=== PATIENT | female | born 2000 | race African-American/Black ===

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

== ENCOUNTER 2018-06-20 09:54 | Emergency (ER) | payer MEDICAID ==
[2018-06-20 10:36] LABS: Bilirubin Negative (Negative); Blood, Urine Negative (Negative); Clarity CLEAR (Clear); Glucose, Urine (Dipstick) Negative (Negative); Leukocyte Small (Negative); Nitrite Negative (Negative); Protein, Urine (Dipstick) Negative (Neg-Trace); Specific Gravity, Urine 1.016 (1.002-1.036)
[2018-06-20 10:39] LABS: Bacteria/HPF Rare-Few HPF (None Seen); Hyaline Casts/LPF 0-3 HYALINE CAST LPF (0-3 Hyaline); Pathc Cast-AUWi Flag 0.13 (0-2.49); RBC/HPF 0-3 HPF (0-3)
[2018-06-20 10:41] LABS: Pregnancy Test - Urine (BHCG) Negative (Negative); Pregu Control Background? CLEAR/WHITE (CLR/WHITE); Pregu Control Bar Appear? YES (CONTROL BAR); Specific Gravity 1.016 (1.002-1.036)
== END 2018-06-20 12:45 | disposition home or self-care (01) ==
LOC: ERS 09:54
DX: K64.9 Unspecified hemorrhoids (principal); R30.0 Dysuria
CPT/HCPCS: 81003; 81015; 81025; 99283

== ENCOUNTER 2018-06-25 21:16 | Emergency (ER) | payer MEDICAID, SELFPAY ==
--- NOTE | 2018-06-25 22:09 | RAD ---
Radiograph chest 2 views: HISTORY: 18-year-old female with chest congestion FINDINGS: Lungs are clear. Cardiomediastinal silhouette is normal. No pleural effusion or pneumothorax. IMPRESSION: Negative
[2018-06-25] MEDS ORDERED: Ibuprofen 800 MG TAB ONE (22:22)
[2018-06-25] MEDS ORDERED: Acetaminophen 500 MG TAB ONE (22:22)
== END 2018-06-25 22:25 | disposition home or self-care (01) ==
LOC: ERS 21:16
DX: J02.9 Acute pharyngitis, unspecified (principal); J20.9 Acute bronchitis, unspecified
CPT/HCPCS: 71046; 87081; 87430

== ENCOUNTER 2019-11-16 15:27 | Emergency (ER) | payer MEDICAID ==
[2019-11-17 12:24] LABS: SARS-CoV-2 MS2 Positive; SARS-CoV-2 N Gene Negative; SARS-CoV-2 S Gene Negative; SARS-CoV-2 by NAA Not Detected (NotDetected); SARS-CoV-2 orf1ab Negative
== END 2019-11-16 16:20 | disposition home or self-care (01) ==
LOC: ERS 15:27
DX: Z20.828 Contact with and (suspected) exposure to other viral communicable diseases (principal)
CPT/HCPCS: 87635; 99283; U0003

== ENCOUNTER 2020-03-16 12:29 | Emergency (ER) | payer MEDICAID, SELFPAY ==
[2020-03-16 12:55] LABS: Bacteria/HPF None Seen HPF (None Seen); Bilirubin Negative (Negative); Blood, Urine Negative (Negative); Clarity Clear (Clear); Glucose, Urine (Dipstick) Normal (Negative); Ketone, Urine Negative (Negative); Leukocyte 75 Leu/uL (Negative); Nitrite Negative (Negative); Protein, Urine (Dipstick) Negative (Neg-Trace); RBC/HPF 0-3 HPF (0-3); Specific Gravity, Urine 1.024 (1.002-1.036); Squamous Epithelial 0-3 HPF (0-3); Urobilinogen Normal mg/dL (Less than 2); pH, Urine 7.5 (5.0-9.0)
[2020-03-16 13:23] LABS: Pregnancy Test - Urine (BHCG) Negative (Negative); Pregu Control Background? CLEAR/WHITE (CLR/WHITE); Pregu Control Bar Appear? YES (CONTROL BAR); Specific Gravity 1.024 (1.002-1.036)
[2020-03-16] MEDS ORDERED: cefTRIAXone\\ROCEPHIN 500 MG VIAL ONE (14:23)
[2020-03-16] MEDS ORDERED: Lidocaine 1% PF 5 ML VIAL ONE (14:25)
[2020-03-17 21:19] LABS: Chlamydia by PCR Not Detected (NotDetected); GC by PCR Not Detected (NotDetected)
== END 2020-03-16 14:56 | disposition home or self-care (01) ==
LOC: ERS 12:29
DX: N89.8 Other specified noninflammatory disorders of vagina (principal)
CPT/HCPCS: 81003; 81015; 81025; 87480; 87491; 87510; 87591; 87660; 96372; 99283; J0696

== ENCOUNTER 2020-03-31 08:08 | Emergency (ER) | payer OTHER, SELFPAY ==
--- NOTE | 2020-03-31 09:37 | RAD ---
CHEST 2 VIEWS: HISTORY: Chest and shoulder pain. COMPARISON: None. FINDINGS: Lungs are clear. No pneumothorax or effusion. Cardiac silhouette and mediastinal contours are withi n normal limits. No acute osseous abnormality. IMPRESSION: No acute intrathoracic abnormality. POS: OFF
[2020-03-31] MEDS ORDERED: Ibuprofen 200 MG TAB ONE (09:46)
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
== END 2020-03-31 10:25 | disposition home or self-care (01) ==
LOC: ERS 08:08
DX: S40.011A Contusion of right shoulder, initial encounter (principal); V89.2XXA Person injured in unspecified motor-vehicle accident, traffic, initial encounter
CPT/HCPCS: 71046

== ENCOUNTER 2020-06-07 10:13 | Emergency (ER) | payer SELFPAY ==
[2020-06-07] MEDS ORDERED: Naproxen 500 MG TAB ONE (11:45)
== END 2020-06-07 11:51 | disposition home or self-care (01) ==
LOC: ERS 10:13
DX: G89.18 Other acute postprocedural pain (principal); K08.89 Other specified disorders of teeth and supporting structures; Z79.891 Long term (current) use of opiate analgesic
CPT/HCPCS: 99283

== ENCOUNTER 2020-11-25 10:49 | Emergency (ER) | payer SELFPAY ==
[2020-11-25] MEDS ORDERED: Ondansetron ODT 4 MG TAB ONE (11:34)
[2020-11-25 11:36] LABS: #Basophils 0.1 thou/uL (0.0-0.2); #Eosinphils 0.1 thou/uL (0.0-0.7); #Lymphocytes 1.4 thou/uL (1.20-3.40); #Monocytes 1.1 thou/uL (0.11-0.59); #Neutrophils 7.7 thou/uL (1.40-6.50); %Basophils 0.8 % (0.0-1.0); %Eosinophils 1.1 % (0.0-10.0); %Monocytes 10.8 % (0.0-10.0); %Neutrophils 74.3 % (42.0-75.0); Hemoglobin 12.3 g/dL (12.0-16.0); Mean Corpuscular HGB CONC 32.4 g/dL (32.0-36.0); Mean Corpuscular Hemoglobin 29.5 pg (27.0-31.0); Mean Platelet Volume 7.1 fL (7.4-10.4); Platelet Count 293 thou/uL (130-400); RBC Distribution Width 12.6 % (11.5-14.5); Red Blood Cell (RBC) Count 4.16 mill/uL (4.20-5.40); White Blood Cell (WBC) Count 10.4 thou/uL (4.8-10.8)
[2020-11-25 11:42] LABS: Bilirubin Negative (Negative); Blood, Urine Trace (Negative); Clarity Turbid (Clear); Glucose, Urine (Dipstick) Normal (Negative); Ketone, Urine Negative (Negative); Leukocyte 250 Leu/uL (Negative); Nitrite Negative (Negative); Protein, Urine (Dipstick) 30 mg/dL (Neg-Trace); Specific Gravity, Urine 1.012 (1.002-1.036); Urobilinogen Normal mg/dL (Less than 2); pH, Urine 5.5 (5.0-9.0)
[2020-11-25 11:46] LABS: Bacteria/HPF 1+ HPF (None Seen)
[2020-11-25 11:52] LABS: Pregnancy Test - Urine (BHCG) Negative (Negative); Pregu Control Background? CLEAR/WHITE (CLR/WHITE); Pregu Control Bar Appear? YES (CONTROL BAR); Specific Gravity 1.012 (1.002-1.036)
== END 2020-11-25 13:03 | disposition home or self-care (01) ==
LOC: ERS 10:49
DX: J02.9 Acute pharyngitis, unspecified (principal); R11.2 Nausea with vomiting, unspecified; M79.10 Myalgia, unspecified site
CPT/HCPCS: 36415; 81003; 81015; 81025; 85025; 99284; Q0162

== ENCOUNTER 2021-02-12 08:04 | Emergency (ER) | payer SELFPAY ==
[2021-02-12] MEDS ORDERED: Ketorolac Tromethamine 30 MG/ML VIAL ONE (08:27)
[2021-02-12] MEDS ORDERED: Ondansetron PF 4 MG/2 ML Vial ONE (08:27)
[2021-02-12 09:10] LABS: #Basophils 0.1 thou/uL (0.0-0.2); #Eosinphils 0.1 thou/uL (0.0-0.7); #Lymphocytes 1.8 thou/uL (1.20-3.40); #Monocytes 0.5 thou/uL (0.11-0.59); #Neutrophils 3.5 thou/uL (1.40-6.50); %Basophils 1.5 % (0.0-1.0); %Eosinophils 1.1 % (0.0-10.0); %Lymphocytes 29.8 % (21.0-51.0); %Monocytes 8.7 % (0.0-10.0); Hemoglobin 13.4 g/dL (12.0-16.0); Mean Corpuscular HGB CONC 32.3 g/dL (32.0-36.0); Mean Corpuscular Hemoglobin 29.2 pg (27.0-31.0); Mean Corpuscular Volume 90.4 fL (78.0-98.0); Platelet Count 314 thou/uL (130-400); RBC Distribution Width 12.8 % (11.5-14.5); Red Blood Cell (RBC) Count 4.59 mill/uL (4.20-5.40); White Blood Cell (WBC) Count 5.9 thou/uL (4.8-10.8)
[2021-02-12 09:12] LABS: Bilirubin Negative (Negative); Blood, Urine Negative (Negative); Glucose, Urine (Dipstick) Normal (Negative); Ketone, Urine Negative (Negative); Leukocyte Negative Leu/uL (Negative); Nitrite Negative (Negative); Protein, Urine (Dipstick) 10 mg/dL (Neg-Trace); Specific Gravity, Urine 1.023 (1.002-1.036); Urobilinogen 3 mg/dL (Less than 2)
[2021-02-12 09:13] LABS: Clarity Hazy (Clear)
[2021-02-12 09:30] LABS: BHCG - Serum Negative (NEGATIVE); Pregs Control Background? CLEAR/WHITE (CLR/WHITE); Pregs Control Bar Appear? YES (CONTROL BAR)
[2021-02-12 10:47] LABS: ALT (SGPT) 11 U/L (8-55); AST (SGOT) 30 U/L (5-34); Albumin 4.3 g/dL (3.5-5.0); Alkaline Phosphatase 72 U/L (40-110); Anion Gap 14 mmol/L (10-20); BUN (Urea Nitrogen) 8 mg/dL (7.0-18.7); Bilirubin, Total 0.6 mg/dL (0.2-1.2); Calc. Creatinine Clearance 0 mL/min (70-130); Calcium 9.7 mg/dL (7.8-10.44); Carbon Dioxide 20 mmol/L (22-29); Chloride 106 mmol/L (98-107); Globulin 3.6 g/dL (2.4-3.5); Glucose 77 mg/dL (70-105); Lipase 16 U/L (8-78); Potassium 4.7 mmol/L (3.5-5.1); Protein, Total 7.9 g/dL (6.0-8.3); Sodium 135 mmol/L (136-145)
== END 2021-02-12 11:06 | disposition home or self-care (01) ==
LOC: ERS 08:04
DX: R10.13 Epigastric pain (principal)
CPT/HCPCS: 80053; 81003; 83690; 84703; 85025; 94760; 96374; 96375; J1885; J2405

== ENCOUNTER 2021-03-21 10:10 | Emergency (ER) | payer OTHER, SELFPAY ==
[2021-03-21] MEDS ORDERED: Ibuprofen 200 MG TAB ONE (10:35)
[2021-03-21] MEDS ORDERED: Boostrix 0.5 ML (Tdap) VIAL ONE (11:11)
[2021-03-21] MEDS ORDERED: Bacitracin 1 PK ONE (11:12)
== END 2021-03-21 11:38 | disposition home or self-care (01) ==
LOC: ERS 10:10
DX: S90.01XA Contusion of right ankle, initial encounter (principal); S90.31XA Contusion of right foot, initial encounter; S80.211A Abrasion, right knee, initial encounter; V98.8XXA Other specified transport accidents, initial encounter; Z23 Encounter for immunization
CPT/HCPCS: 90471; 90715

== ENCOUNTER 2021-08-02 14:17 | Emergency (ER) | payer SELFPAY ==
[2021-08-02] MEDS ORDERED: cefTRIAXone\\ROCEPHIN 500 MG VIAL ONE (16:33)
[2021-08-02] MEDS ORDERED: Lidocaine 1% PF 5 ML VIAL ONE (16:33)
[2021-08-02 16:51] LABS: Bacteria/HPF 2+ HPF (None Seen); Bilirubin Negative (Negative); Blood, Urine 3+ (Negative); Clarity Clear (Clear); Glucose, Urine (Dipstick) Normal (Negative); Ketone, Urine Trace mg/dL (Negative); Leukocyte 25 Leu/uL (Negative); Nitrite Negative (Negative); Protein, Urine (Dipstick) 30 mg/dL (Neg-Trace); Specific Gravity, Urine 1.026 (1.002-1.036); pH, Urine 6.5 (5.0-9.0)
[2021-08-02 16:52] LABS: Pregnancy Test - Urine (BHCG) Negative (Negative); Pregu Control Background? CLEAR/WHITE (CLR/WHITE); Pregu Control Bar Appear? YES (CONTROL BAR); Specific Gravity 1.026 (1.002-1.036)
[2021-08-03 12:23] LABS: Chlamydia by PCR Not Detected (NotDetected); GC by PCR Not Detected (NotDetected)
== END 2021-08-02 16:58 | disposition home or self-care (01) ==
LOC: ERS 14:17
DX: N89.8 Other specified noninflammatory disorders of vagina (principal); Z20.2 Contact with and (suspected) exposure to infections with a predominantly sexual mode of transmission
CPT/HCPCS: 81003; 81015; 81025; 87086; 87480; 87491; 87510; 87591; 87660; 96372; 99283; J0696

== ENCOUNTER 2021-12-24 10:13 | Emergency (ER) | payer SELFPAY ==
[2021-12-24 11:14] LABS: Pregnancy Test - Urine (BHCG) Negative (Negative); Pregu Control Background? CLEAR/WHITE (CLR/WHITE); Pregu Control Bar Appear? YES (CONTROL BAR); Specific Gravity 1.012 (1.002-1.036)
[2021-12-24 11:22] LABS: Bacteria/HPF None Seen HPF (None Seen); Bilirubin Negative (Negative); Blood, Urine Negative (Negative); Clarity Clear (Clear); Glucose, Urine (Dipstick) Normal (Negative); Ketone, Urine Negative (Negative); Leukocyte Negative Leu/uL (Negative); Nitrite Negative (Negative); Protein, Urine (Dipstick) Negative (Neg-Trace); RBC/HPF 0-3 HPF (0-3); Specific Gravity, Urine 1.013 (1.002-1.036); Squamous Epithelial 0-3 HPF (0-3); Urobilinogen Normal mg/dL (Less than 2); WBC/HPF 0-3 HPF (0-3); pH, Urine 7.5 (5.0-9.0)
[2021-12-24 21:20] LABS: Chlamydia by PCR Not Detected (NotDetected); GC by PCR Not Detected (NotDetected)
== END 2021-12-24 12:21 | disposition home or self-care (01) ==
LOC: ERS 10:13
DX: N89.8 Other specified noninflammatory disorders of vagina (principal)
CPT/HCPCS: 81003; 81025; 87480; 87491; 87510; 87591; 87660; 99283

== ENCOUNTER 2022-01-09 15:09 | Emergency (ER) | payer SELFPAY ==
[2022-01-09] MEDS ORDERED: Acetaminophen 500 MG TAB ONE (16:12)
[2022-01-09] MEDS ORDERED: Ibuprofen 200 MG TAB ONE (16:12)
[2022-01-09] MEDS ORDERED: Dexameth. Sod Phosp. 10 MG/ML (CHEMO USE ONLY) ONE (16:12)
[2022-01-09] MEDS ORDERED: Bicillin LA 1.2 MILLION UNITS/2 ML SYRINGE ONE (16:19)
== END 2022-01-09 18:03 | disposition home or self-care (01) ==
LOC: ERS 15:09
DX: J02.0 Streptococcal pharyngitis (principal)
CPT/HCPCS: 87081; 87430; 96372; 99283; J0561; J1100

== ENCOUNTER 2022-03-29 11:03 | Day surgery (SDC) | payer MEDICAID, SELFPAY ==
[2022-03-29] MEDS ORDERED: CEFAZOLIN 2 GM VIAL ONE (11:48)
[2022-03-29] MEDS ORDERED: Ketorolac Tromethamine 30 MG/ML VIAL ONE (11:48)
[2022-03-29] MEDS ORDERED: Morphine 4 MG/ML VIAL ONE (11:48)
[2022-03-29] MEDS ORDERED: Ondansetron PF 4 MG/2 ML Vial ONE ×3 (11:48→21:24)
[2022-03-29] MEDS ORDERED: CEFAZOLIN 2 GM in Sodium Chloride 0.9% 100 ML IVPB SCH (14:00)
[2022-03-29 14:05] LABS: SARS-CoV-2 NAA Rapid Test Not Detected (NotDetected)
[2022-03-29 14:14] LABS: #Basophils 0.1 thou/uL (0.0-0.2); #Lymphocytes 1.4 thou/uL (1.20-3.40); #Monocytes 0.4 thou/uL (0.11-0.59); %Basophils 0.6 % (0.0-1.0); %Eosinophils 0.4 % (0.0-10.0); %Lymphocytes 14.3 % (21.0-51.0); %Monocytes 4.4 % (0.0-10.0); %Neutrophils 80.3 % (42.0-75.0); Hemoglobin 13.3 g/dL (12.0-16.0); Mean Corpuscular HGB CONC 32.8 g/dL (32.0-36.0); Mean Corpuscular Hemoglobin 30.5 pg (27.0-31.0); Mean Platelet Volume 7.8 fL (7.4-10.4); Platelet Count 276 10x3/uL (130-400); RBC Distribution Width 12.7 % (11.5-14.5); Red Blood Cell (RBC) Count 4.37 mill/uL (4.20-5.40)
[2022-03-29 14:25] LABS: Anion Gap 14 mmol/L (10-20); BUN (Urea Nitrogen) 9 mg/dL (7.0-18.7); Calc. Creatinine Clearance 0 mL/min (70-130); Carbon Dioxide 21 mmol/L (22-29); Chloride 104 mmol/L (98-107); Estimated GFR 122; Glucose 93 mg/dL (70-105); Potassium 4.1 mmol/L (3.5-5.1); Sodium 135 mmol/L (136-145)
[2022-03-29 14:58] LABS: BHCG - Serum Negative (NEGATIVE); Pregs Control Bar Appear? YES (CONTROL BAR)
[2022-03-29 14:59] LABS: Pregs Control Background? CLEAR/WHITE (CLR/WHITE)
[2022-03-29] MEDS ORDERED: Midazolam HCl 2 mg/2 ml Vial ONE (18:01)
[2022-03-29] MEDS ORDERED: fentaNYL PF 100 MCG/2 ML SYRINGE ONE ×2 (18:01→20:16)
[2022-03-29] MEDS ORDERED: HYDROmorphone 0.5 MG/0.5 ML SYRINGE ONE (18:02)
[2022-03-29] MEDS ORDERED: Dexamethasone 20 MG/5 ML VIAL ONE (18:45)
[2022-03-29] MEDS ORDERED: PROPOFOL 200 MG/20 ML VIAL ONE (18:45)
[2022-03-29] MEDS ORDERED: ePHEDrine 50 MG/ML VIAL ONE (18:45)
== END 2022-03-29 21:30 | disposition home or self-care (01) ==
LOC: ERS 11:03 → SDC/OP 16:44
PROVIDERS: ATTEND Orthopaedic Surgery
PROC: 0PSL04Z Reposition Left Ulna with Internal Fixation Device, Open Approach (ICD-10-PCS; principal; 2022-03-29)
DX: S52.092B Other fracture of upper end of left ulna, initial encounter for open fracture type I or II (principal); M21.02 Valgus deformity, not elsewhere classified, elbow; Z20.822 Contact with and (suspected) exposure to COVID-19; Y00.XXXA Assault by blunt object, initial encounter
CPT/HCPCS: 36415; 80048; 84703; 85025; C1713; C1874; G0390; J1100; J1170; J1885; J2250; J2270; J2405; J2704; J3490

== ENCOUNTER 2022-04-07 09:44 | Emergency (ER) | payer SELFPAY | END 2022-04-07 11:43 | disposition home or self-care (01) | LOC: ERS 09:44 | DX: S41.112D Laceration without foreign body of left upper arm, subsequent encounter (principal); W26.0XXD Contact with knife, subsequent encounter ==

== ENCOUNTER 2022-05-02 11:53 | Emergency (ER) | payer SELFPAY ==
[2022-05-02 13:50] LABS: Bilirubin Negative (Negative); Blood, Urine Negative (Negative); Clarity Clear (Clear); Glucose, Urine (Dipstick) Normal (Negative); Ketone, Urine 40 mg/dL (Negative); Leukocyte 25 Leu/uL (Negative); Mucous/LPF Rare LPF (<2+); Nitrite Negative (Negative); Pregnancy Test - Urine (BHCG) Negative (Negative); Pregu Control Background? CLEAR/WHITE (CLR/WHITE); Pregu Control Bar Appear? YES (CONTROL BAR); Protein, Urine (Dipstick) 20 mg/dL (Neg-Trace); RBC/HPF 0-3 HPF (0-3); Specific Gravity 1.023 (1.002-1.036); Specific Gravity, Urine 1.023 (1.002-1.036); Urobilinogen Normal mg/dL (Less than 2); WBC/HPF 0-3 HPF (0-3); pH, Urine 7.5 (5.0-9.0)
[2022-05-02 13:51] LABS: Bacteria/HPF 1+ HPF (None Seen)
[2022-05-02] MEDS ORDERED: Ondansetron ODT 4 MG TAB ONE (13:53)
[2022-05-02] MEDS ORDERED: Ketorolac Tromethamine 30 MG/ML VIAL ONE (14:11)
[2022-05-02] MEDS ORDERED: Acetaminophen 500 MG TAB ONE (14:17)
== END 2022-05-02 15:30 | disposition home or self-care (01) ==
LOC: ERS 11:53
DX: R11.10 Vomiting, unspecified (principal); M54.50 Low back pain, unspecified
CPT/HCPCS: 81003; 81015; 81025; 96372; 99284; J1885; Q0162

== ENCOUNTER 2022-09-10 09:31 | Emergency (ER) | payer MEDICAID, SELFPAY ==
[2022-09-10 10:09] LABS: Pregnancy Test - Urine (BHCG) Negative (Negative); Pregu Control Background? CLEAR/WHITE (CLR/WHITE); Pregu Control Bar Appear? YES (CONTROL BAR)
[2022-09-10 10:16] LABS: Specific Gravity 1.023 (1.002-1.036)
[2022-09-10 10:18] LABS: Bilirubin Negative (Negative); Blood, Urine Negative (Negative); CAUTI Indications for Culture Pelvic or flank pain; Clarity Turbid (Clear); Glucose, Urine (Dipstick) Normal (Negative); Ketone, Urine Negative (Negative); Leukocyte Negative Leu/uL (Negative); Nitrite Negative (Negative); Protein, Urine (Dipstick) Negative (Neg-Trace); Specific Gravity, Urine 1.023 (1.002-1.036); WBC/HPF 0-3 HPF (0-3)
[2022-09-10 10:28] LABS: Bacteria/HPF 1+ HPF (None Seen)
[2022-09-10 10:30] LABS: Urine Culture Reflex No No
[2022-09-10 20:03] LABS: Chlam.trachomatis by PCR,Urine Not Detected (NotDetected); GC N.gonorrhoeae PCR,UrineVOID Not Detected (NotDetected)
== END 2022-09-10 11:20 | disposition home or self-care (01) ==
LOC: ERS 09:31
DX: N76.0 Acute vaginitis (principal)
CPT/HCPCS: 81001; 81025; 87480; 87491; 87510; 87591; 87660; 99283

== ENCOUNTER 2022-12-17 20:04 | Emergency (ER) | payer SELFPAY ==
[2022-12-17] MEDS ORDERED: Boostrix 0.5 ML (Tdap) VIAL (>/=7 yrs of age) ONE (23:17)
== END 2022-12-17 23:43 | disposition home or self-care (01) ==
LOC: ERS 20:04
DX: L02.413 Cutaneous abscess of right upper limb (principal)
CPT/HCPCS: 90471; 90715; 99283

== ENCOUNTER 2023-02-23 19:20 | Emergency (ER) | payer SELFPAY ==
[2023-02-23] MEDS ORDERED: Lidocaine 1% w/Epinephrine 1:100K 20 ML VIAL ONE (19:37)
== END 2023-02-23 20:25 | disposition home or self-care (01) ==
LOC: ERS 19:20
DX: L02.31 Cutaneous abscess of buttock (principal)
CPT/HCPCS: 10060

== ENCOUNTER 2023-09-08 11:39 | Emergency (ER) | payer SELFPAY ==
[2023-09-08] MEDS ORDERED: Acetaminophen 500 MG TAB ONE (13:34)
[2023-09-08] MEDS ORDERED: Ketorolac Tromethamine 30 MG (1 mL) VIAL ONE (13:34)
[2023-09-08] MEDS ORDERED: Ondansetron PF 4 MG/2 ML Vial ONE (13:37)
[2023-09-08 13:43] LABS: #Basophils 0.05 10x3/uL (0.0-0.2); %Basophils 0.4 % (0.0-1.0); %Eosinophils 0.2 % (0.0-10.0); %Lymphocytes 6.1 % (21.0-51.0); %Monocytes 6.1 % (0.0-10.0); Hematocrit 41.9 % (36.0-47.0); Hemoglobin 13.8 g/dL (12.0-16.0); Mean Corpuscular HGB CONC 32.9 g/dL (32.0-36.0); Mean Corpuscular Hemoglobin 29.6 pg (27.0-31.0); Mean Corpuscular Volume 89.7 fL (78.0-98.0); Mean Platelet Volume 9.6 fL (7.4-10.4); Platelet Count 295 10x3/uL (130-400); RBC Distribution Width 13.2 % (11.5-14.5); Red Blood Cell (RBC) Count 4.67 mill/uL (4.20-5.40)
[2023-09-08 13:53] LABS: MONO NEGATIVE CONTROL ZONE White (Negative) (White); MONO POSITIVE CONTROL Pink Line (Positive) (PINK/RED); Mononucleosis NEGATIVE (NEGATIVE)
[2023-09-08 14:00] LABS: ALT (SGPT) 9 U/L (8-55); AST (SGOT) 17 U/L (5-34); Albumin 4.1 g/dL (3.5-5.0); Alkaline Phosphatase 83 U/L (40-110); Anion Gap 13 mmol/L (10-20); BHCG - Serum Negative (NEGATIVE); BUN (Urea Nitrogen) 7 mg/dL (7.0-18.7); Bilirubin, Total 0.4 mg/dL (0.2-1.2); Calc. Creatinine Clearance 0 mL/min (70-130); Calcium 9.4 mg/dL (7.8-10.44); Carbon Dioxide 22 mmol/L (22-29); Chloride 105 mmol/L (98-107); Estimated GFR 119; Globulin 3.5 g/dL (2.4-3.5); Glucose 96 mg/dL (70-105); Lipase 17 U/L (8-78); Potassium 3.5 mmol/L (3.5-5.1); Pregs Control Background? CLEAR/WHITE (CLR/WHITE); Pregs Control Bar Appear? YES (CONTROL BAR); Protein, Total 7.6 g/dL (6.0-8.3); Sodium 136 mmol/L (136-145)
[2023-09-08] MEDS ORDERED: Bicillin LA 1.2 MILLION UNITS/2 ML SYRINGE ONE (14:47)
[2023-09-08 15:13] LABS: Influenza A by NAA Not Detected (NotDetected); Influenza B by NAA Not Detected (NotDetected); SARS-CoV-2 NAA Rapid Test Not Detected (NotDetected)
== END 2023-09-08 15:14 | disposition home or self-care (01) ==
LOC: ERS 11:39
DX: J02.0 Streptococcal pharyngitis (principal); R11.2 Nausea with vomiting, unspecified
CPT/HCPCS: 36415; 71045; 80053; 83690; 84703; 85025; 86308; 87430; J0561; J1885; J2405

== ENCOUNTER 2024-10-21 17:49 | Emergency (ER) | payer OTHER ==
[2024-10-21] MEDS ORDERED: Dexamethasone 10 MG/ML VIAL ONE (20:10)
== END 2024-10-21 20:09 | disposition home or self-care (01) ==
LOC: ERS 17:49
DX: J02.9 Acute pharyngitis, unspecified (principal)
CPT/HCPCS: 87081; 87428; 87430; 99283; J1100